=== PATIENT | male | born 1990 | race Caucasian/White ===

== ENCOUNTER 2017-08-28 19:46 | Emergency (ER) | payer OTHER ==
[2017-08-28 20:28] LABS: BASOPHILS 0.3 % (0-2); EOSINOPHILS 1.5 % (0-7); HEMATOCRIT 42.9 % (42.0-54.0); HEMOGLOBIN 14.3 g/dL (13.5-17.5); IMMATURE GRANULOCYTES 0.3 % (0-5); LYMPHOCYTES 21.7 % (15-50); MCH 28.7 pg (26.0-34.0); MCHC 33.3 g/dL (31.0-37.0); MCV 86.1 fL (80.0-100.0); MEAN PLATELET VOLUME 9.4 fL (7.4-10.4); MONOCYTES 7.8 % (2-11); NEUTROPHILS 68.4 % (40-80); PLATELET COUNT 236 10x3/uL (130-400); RBC 4.98 10x6/uL (4.20-6.10); RDW 13.5 % (11.5-14.5); WBC 6.1 10x3/uL (4.8-10.8)
[2017-08-28 21:06] LABS: ALBUMIN 3.5 g/dL (3.4-5.0); ALKALINE PHOSPHATASE 61 U/L (46-116); ALT (SGPT) 51 U/L (10-68); BILIRUBIN - TOTAL 0.31 mg/dL (0.2-1.3); CALC OSMOLALITY 275 mosm/kg (275-300); CALCIUM 8.9 mg/dL (8.5-10.1); CARBON DIOXIDE 21.8 mmol/L (21.0-32.0); CHLORIDE - SERUM 106 mmol/L (98-107); CREATININE - SERUM 1.1 mg/dL (0.6-1.3); GLUCOSE 94 mg/dL (74-106); POTASSIUM - SERUM 3.7 mmol/L (3.5-5.1); PROTEIN - SERUM 7.6 g/dL (6.4-8.2); SODIUM 139 mmol/L (136-145); UREA NITROGEN 7 mg/dL (7-18); eGFR NON AFRICAN AMERICAN 86 mL/min (90-120)
[2017-08-28 21:14] LABS: CREATINE KINASE 96 UL (21-232); PRO BNP 90 pg/mL (0-125); TROPONIN-I < 0.017 ng/mL (0.000-0.060)
[2017-08-31 13:06] VITALS: BMI 44.2
== END 2017-08-29 00:35 | disposition home or self-care (01) ==
LOC: D.ER 19:46
PROVIDERS: Family Medicine
DX: J18.9 Pneumonia, unspecified organism (principal); R00.0 Tachycardia, unspecified

== ENCOUNTER 2017-08-30 14:22 | Inpatient (IN) | payer OTHER ==
[~2017-08-30] VITALS: Ht 185.4 cm; Wt 146.7 kg
--- NOTE | ~2017-08-30 | EC ---
PATIENT:APOLONIA GONZALEZ DATE OF SERVICE: 08/30/17 SEX: M MEDICAL RECORD: [id number] DATE OF : [birth year] LOCATION:D.M2 D.210 AGE OF PATIENT: 27 ADMISSION DATE: 08/30/17 REFERRING PHYSICIAN: INTERPRETING PHYSICIAN: ATIF ALVA MD ECHOCARDIOGRAM REPORT ECHO CHARGES 4 ECHO COMPLETE CLINICAL DIAGNOSIS: CHF ECHOCARDIOGRAPHIC MEASUREMENTS (adult normal given) AC root (d.<3.7cm) 3.7 cm LV Septum d (<1.2 cm> 1.5 cm Valve Excursion 1.7 cm LV Septum (systole) 1.7 cm Left Atria (s.<4.0cm> 3.6 cm LVPW d(<1.2cm) 1.7 cm RV (d.<2.3cm) 4.8 cm LVPW (sytole) 1.9 cm LV diastole(<5.6CM) 4.0 cm MV E-F(>70mm/sec) cm LV systole 2.5 cm LVOT Diameter 2.0 cm MV exc.(>10mm) 1.6 cm Est.ejection fraction (50-75%) % Pericardial Effusion N DOPPLER: LVIT cm/sec A 88.0 cm/sec E 116 cm/sec LA cm/sec RVSP 18 mmHg LVOT 108 cm/sec AOP1/2T m/s Asc. Ao 140 cm/sec RVOT 85 cm/sec RA cm/sec PA 117 cm/sec AV Gradient Peak 7.89 mmHg AV Mean 4.53 mmHg AV Area 3.2 cm MV Gradient Peak 4.74 mmHg MV Mean 2.47 mmHg MV Area cm COMMENTS: Prosthetist: Monica AVILA Artificial Breeding Distributor: 1 Dr. Alva TAPE# PACS DATE OF SERVICE: 08/31/2017 Echocardiogram FINDINGS: 1. Left ventricular chamber size is within normal limits. Left ventricular systolic function is normal. Overall ejection fraction estimated at 55%. 2. Left atrium is within normal limits at 3.6 cm. Right atrium and right ventricular chamber sizes are mildly dilated. 3. Valvular structures have normal structure and motion. ECHOCARDIOGRAM REPORT [id number] APOLONIA GONZALEZ 4. Doppler interrogation reveals no significant valvular insufficiency or stenosis. 5. No evidence of pericardial effusion or left ventricular thrombus. TRANSINT:[id number] Voice Confirmation ID: [id number] DOCUMENT ID: [id number] ATIF ALVA MD at 1202 CC: [id number] DICTATION DATE: 08/31/17 1536 INCIDENT HANDLER: 08/31/17 1601 ADM IN [place] [id number] [place] [id number]
[2017-08-30 15:31] LABS: BASOPHILS 0.1 % (0-2); EOSINOPHILS 0 % (0-7); HEMATOCRIT 45.3 % (42.0-54.0); IMMATURE GRANULOCYTES 0.2 % (0-5); LYMPHOCYTES 9.1 % (15-50); MCH 28.5 pg (26.0-34.0); MCHC 33.1 g/dL (31.0-37.0); MEAN PLATELET VOLUME 9.5 fL (7.4-10.4); NEUTROPHILS 86.6 % (40-80); PLATELET COUNT 272 10x3/uL (130-400); RBC 5.27 10x6/uL (4.20-6.10); RDW 13.7 % (11.5-14.5); WBC 9.8 10x3/uL (4.8-10.8)
[2017-08-30 15:50] LABS: ALBUMIN 3.6 g/dL (3.4-5.0); ALKALINE PHOSPHATASE 57 U/L (46-116); BILIRUBIN - TOTAL 0.28 mg/dL (0.2-1.3); CALCIUM 8.9 mg/dL (8.5-10.1); CARBON DIOXIDE 20.2 mmol/L (21.0-32.0); CHLORIDE - SERUM 106 mmol/L (98-107); CREATININE - SERUM 1.1 mg/dL (0.6-1.3); GLUCOSE 122 mg/dL (74-106); POTASSIUM - SERUM 4.2 mmol/L (3.5-5.1); PROTEIN - SERUM 7.5 g/dL (6.4-8.2); SODIUM 140 mmol/L (136-145); eGFR NON AFRICAN AMERICAN 86 mL/min (90-120)
[2017-08-30 15:52] LABS: ALT (SGPT) 548 U/L (10-68); CALC OSMOLALITY 278 mosm/kg (275-300); UREA NITROGEN 10 mg/dL (7-18)
[2017-08-30 16:34] VITALS: BP 118/78; BMI 44.2
[2017-08-30 20:00] VITALS: BP 121/68
[2017-08-31] VITALS: BP 122/78
[2017-08-31 04:00] VITALS: BP 140/85
[2017-08-31 05:13] LABS: BASOPHILS 0.1 % (0-2); EOSINOPHILS 0.1 % (0-7); HEMATOCRIT 40.6 % (42.0-54.0); HEMOGLOBIN 13.2 g/dL (13.5-17.5); IMMATURE GRANULOCYTES 0.2 % (0-5); LYMPHOCYTES 28.9 % (15-50); MCH 28.1 pg (26.0-34.0); MCHC 32.5 g/dL (31.0-37.0); MCV 86.4 fL (80.0-100.0); MEAN PLATELET VOLUME 9.6 fL (7.4-10.4); MONOCYTES 9.5 % (2-11); NEUTROPHILS 61.2 % (40-80); PLATELET COUNT 264 10x3/uL (130-400); WBC 8.1 10x3/uL (4.8-10.8)
[2017-08-31] MEDS ORDERED: ZITHROMAX250 MG PO (05:23)
[2017-08-31] MEDS ORDERED: OMNICEF300 MG PO (05:24)
[2017-08-31] MEDS ORDERED: MEDROL DOSE PACK4 MG PO (05:25)
[2017-08-31 05:26] LABS: ALBUMIN 2.9 g/dL (3.4-5.0); ALKALINE PHOSPHATASE 44 U/L (46-116); BILIRUBIN - TOTAL 0.26 mg/dL (0.2-1.3); CALCIUM 8.3 mg/dL (8.5-10.1); CARBON DIOXIDE 23.2 mmol/L (21.0-32.0); CHLORIDE - SERUM 104 mmol/L (98-107); CREATININE - SERUM 1.2 mg/dL (0.6-1.3); GLUCOSE 95 mg/dL (74-106); MAGNESIUM - SERUM 1.9 mg/dL (1.8-2.4); PHOSPHOROUS 4.2 mg/dL (2.5-4.9); POTASSIUM - SERUM 3.8 mmol/L (3.5-5.1); PROTEIN - SERUM 6.7 g/dL (6.4-8.2); SODIUM 138 mmol/L (136-145); eGFR NON AFRICAN AMERICAN 78 mL/min (90-120)
[2017-08-31 05:30] LABS: ALT (SGPT) 32 U/L (10-68); CALC OSMOLALITY 276 mosm/kg (275-300); UREA NITROGEN 15 mg/dL (7-18)
[2017-08-31 08:08] VITALS: BP 143/72
[2017-08-31 11:02] VITALS: BP 104/55
[2017-08-31 13:06] VITALS: Ht 185.4 cm; Wt 146.7 kg
[2017-08-31 15:16] VITALS: BP 138/70
[2017-08-31 20:00] VITALS: BP 133/79
[2017-09-01] VITALS: BP 139/70
[2017-09-01 04:00] VITALS: BP 125/69
[2017-09-01 04:41] LABS: BASOPHILS 0 % (0-2); EOSINOPHILS 0 % (0-7); HEMATOCRIT 42.6 % (42.0-54.0); IMMATURE GRANULOCYTES 0.3 % (0-5); LYMPHOCYTES 17.1 % (15-50); MCH 28.2 pg (26.0-34.0); MCHC 32.9 g/dL (31.0-37.0); MCV 85.7 fL (80.0-100.0); MEAN PLATELET VOLUME 9.4 fL (7.4-10.4); MONOCYTES 4.7 % (2-11); NEUTROPHILS 77.9 % (40-80); PLATELET COUNT 283 10x3/uL (130-400); RBC 4.97 10x6/uL (4.20-6.10); RDW 13.8 % (11.5-14.5); WBC 6.2 10x3/uL (4.8-10.8)
[2017-09-01 05:25] LABS: CARBON DIOXIDE 20.2 mmol/L (21.0-32.0); CHLORIDE - SERUM 100 mmol/L (98-107); ERYTHROCYTE SEDIMENTATION RATE 26 mm/hr (0-15); POTASSIUM - SERUM 4.1 mmol/L (3.5-5.1); SODIUM 131 mmol/L (136-145); UREA NITROGEN 12 mg/dL (7-18); eGFR NON AFRICAN AMERICAN > 90 mL/min (90-120)
[2017-09-01 05:29] LABS: CALC OSMOLALITY 271 mosm/kg (275-300); GLUCOSE 263 mg/dL (74-106); PRO BNP 9 pg/mL (0-125)
[2017-09-01 09:47] VITALS: BP 117/60
[2017-09-01 12:42] VITALS: BP 107/66
[2017-09-01 18:13] VITALS: BP 132/65
[2017-09-01 21:35] VITALS: BP 155/82
[2017-09-02 01:24] VITALS: BP 145/85
[2017-09-02 06:00] LABS: BASOPHILS 0.1 % (0-2); EOSINOPHILS 0 % (0-7); HEMATOCRIT 40.1 % (42.0-54.0); HEMOGLOBIN 13.3 g/dL (13.5-17.5); IMMATURE GRANULOCYTES 0.5 % (0-5); LYMPHOCYTES 15.1 % (15-50); MCH 28.2 pg (26.0-34.0); MCHC 33.2 g/dL (31.0-37.0); MCV 85.1 fL (80.0-100.0); MEAN PLATELET VOLUME 9.4 fL (7.4-10.4); MONOCYTES 7.3 % (2-11); RBC 4.71 10x6/uL (4.20-6.10); RDW 13.4 % (11.5-14.5)
[2017-09-02 06:01] LABS: PLATELET COUNT 347 10x3/uL (130-400); WBC 10.3 10x3/uL (4.8-10.8)
[2017-09-02 06:30] VITALS: BP 115/62
[2017-09-02 06:30] LABS: ALBUMIN 2.9 g/dL (3.4-5.0); ALKALINE PHOSPHATASE 48 U/L (46-116); ALT (SGPT) 49 U/L (10-68); CALC OSMOLALITY 283 mosm/kg (275-300); CALCIUM 8.9 mg/dL (8.5-10.1); CARBON DIOXIDE 20.2 mmol/L (21.0-32.0); CHLORIDE - SERUM 106 mmol/L (98-107); CREATININE - SERUM 0.9 mg/dL (0.6-1.3); GLUCOSE 228 mg/dL (74-106); POTASSIUM - SERUM 4.2 mmol/L (3.5-5.1); SODIUM 138 mmol/L (136-145); UREA NITROGEN 14 mg/dL (7-18); eGFR NON AFRICAN AMERICAN > 90 mL/min (90-120)
[2017-09-02 09:10] VITALS: BP 132/67
[2017-09-02 12:42] VITALS: BP 123/72
[2017-09-02 16:26] VITALS: BP 114/62
[2017-09-02 20:43] VITALS: BP 140/67
[2017-09-03 00:30] VITALS: BP 142/76
[2017-09-03 06:27] LABS: BASOPHILS 0 % (0-2); EOSINOPHILS 0 % (0-7); HEMOGLOBIN 13.6 g/dL (13.5-17.5); LYMPHOCYTES 13.6 % (15-50); MCH 28.3 pg (26.0-34.0); MCHC 33.2 g/dL (31.0-37.0); MCV 85.2 fL (80.0-100.0); MEAN PLATELET VOLUME 9.1 fL (7.4-10.4); MONOCYTES 4.4 % (2-11); PLATELET COUNT 379 10x3/uL (130-400); RBC 4.81 10x6/uL (4.20-6.10); RDW 13.5 % (11.5-14.5)
[2017-09-03 06:28] LABS: WBC 12.9 10x3/uL (4.8-10.8)
[2017-09-03 06:43] LABS: CALC OSMOLALITY 280 mosm/kg (275-300); CALCIUM 8.8 mg/dL (8.5-10.1); CARBON DIOXIDE 21.1 mmol/L (21.0-32.0); CHLORIDE - SERUM 105 mmol/L (98-107); CREATININE - SERUM 0.9 mg/dL (0.6-1.3); GLUCOSE 200 mg/dL (74-106); POTASSIUM - SERUM 4.4 mmol/L (3.5-5.1); SODIUM 137 mmol/L (136-145); UREA NITROGEN 16 mg/dL (7-18); eGFR NON AFRICAN AMERICAN > 90 mL/min (90-120)
[2017-09-03 09:19] VITALS: BP 124/100
[2017-09-03 11:39] VITALS: BP 132/89
[2017-09-03 12:13] LABS: ANA REFLEX - DIRECT Negative (Negative)
[2017-09-03 15:32] VITALS: BP 131/82
[2017-09-03 19:00] VITALS: BP 141/77
[2017-09-04 04:00] VITALS: BP 123/52
[2017-09-04 06:06] LABS: BASOPHILS 0.1 % (0-2); EOSINOPHILS 0 % (0-7); HEMATOCRIT 41.8 % (42.0-54.0); HEMOGLOBIN 13.7 g/dL (13.5-17.5); IMMATURE GRANULOCYTES 3.3 % (0-5); LYMPHOCYTES 13.3 % (15-50); MCH 28.2 pg (26.0-34.0); MCHC 32.8 g/dL (31.0-37.0); MCV 86.2 fL (80.0-100.0); MEAN PLATELET VOLUME 9.4 fL (7.4-10.4); MONOCYTES 5.8 % (2-11); NEUTROPHILS 77.5 % (40-80); PLATELET COUNT 408 10x3/uL (130-400); RBC 4.85 10x6/uL (4.20-6.10); RDW 13.4 % (11.5-14.5); WBC 14.6 10x3/uL (4.8-10.8)
[2017-09-04 06:16] LABS: CALC OSMOLALITY 284 mosm/kg (275-300); CALCIUM 8.9 mg/dL (8.5-10.1); CARBON DIOXIDE 24.5 mmol/L (21.0-32.0); CHLORIDE - SERUM 105 mmol/L (98-107); CREATININE - SERUM 0.9 mg/dL (0.6-1.3); GLUCOSE 194 mg/dL (74-106); POTASSIUM - SERUM 4.3 mmol/L (3.5-5.1); SODIUM 139 mmol/L (136-145); UREA NITROGEN 17 mg/dL (7-18); eGFR NON AFRICAN AMERICAN > 90 mL/min (90-120)
[2017-09-04 08:14] VITALS: BP 108/53
[2017-09-04 11:53] VITALS: BP 113/65
[2017-09-04] MEDS ORDERED: PREDNISONE10 MG PO (12:21)
[2017-09-04] MEDS ORDERED: DOXYCYCLINE HY100 M2 PO (12:21)
[2017-09-04 22:09] LABS: MYCOPLASMA PNEUMO IGG 366 U/mL (0-99)
== END 2017-09-04 14:47 | disposition home or self-care (01) | DRG 177 ==
LOC: D.M2 14:22
PROVIDERS: Family Medicine; Internal Medicine Nephrology; Internal Medicine Pulmonary Disease
DX: J15.6 Pneumonia due to other Gram-negative bacteria (principal); J96.01 Acute respiratory failure with hypoxia; J13 Pneumonia due to Streptococcus pneumoniae; J15.212 Pneumonia due to Methicillin resistant Staphylococcus aureus; K21.9 Gastro-esophageal reflux disease without esophagitis; G47.33 Obstructive sleep apnea (adult) (pediatric); R74.8 Abnormal levels of other serum enzymes; J30.9 Allergic rhinitis, unspecified; J98.01 Acute bronchospasm